=== PATIENT | female | born 1980 | race Native Hawaiian/Other Pacific Islander ===

== ENCOUNTER 2018-04-21 09:35 | Emergency (ER) | payer BC ==
[2018-04-21 09:52] VITALS: RESP 16; BMI 28.5
[2018-04-21 10:33] LABS: HEMOGLOBIN 11.4 g/dL (11.0-16.0); MEAN CORPUSCULAR HEMOGLOBIN 28.4 pg (27.0-31.0); MEAN CORPUSCULAR HGB CONC 33.8 g/dL (33.0-37.0); MEAN PLATELET VOLUME 7.5 fL (7.2-11.7); RED CELL DISTRIBUTION WIDTH 15.8 % (11.5-14.5); WHITE BLOOD COUNT 6.7 K/uL (4.8-10.8)
[2018-04-21 10:45] LABS: ALB/GLOB RATIO 1.2 (1.0-2.1); ALBUMIN 4.3 g/dL (3.5-5.0); ALT/SGPT 17 U/L (9-52); AST/SGOT 28 U/L (14-36); BLOOD UREA NITROGEN 12 mg/dL (7-17); CALCIUM 9.3 mg/dl (8.6-10.4); GFR NON-AFRICAN AMERICAN > 60
[2018-04-21 12:53] LABS: SQUAMOUS EPITHIAL 105 /hpf (0-5); URINE BACTERIA FEW (<OCC); URINE BILIRUBIN NEGATIVE (NEGATIVE); URINE BLOOD 2+ (NEGATIVE); URINE CLARITY Hazy (Clear); URINE COLOR Yellow (YELLOW); URINE GLUCOSE (UA) NORMAL (Normal); URINE LEUKOCYTE ESTERASE 3+ Leu/uL (Negative); URINE PROTEIN 1+ mg/dL (NEGATIVE); URINE UROBILINOGEN NORMAL mg/dL (0.2-1.0)
--- NOTE | 2018-04-21 12:59 | US ---
Date of service: 04/21/18 1st trimester/Ob TV Indication: Pelvic pain, bleeding, Comparison: Transvaginal pelvic ultrasound performed 12/29/17 Technique: Real-time transabdominal pelvic ultrasound was performed. In addition a transvaginal pelvic ultrasound was necessary to better depict pelvic anatomy. Findings: Uterus measures approximately 7.6 x 5.6 x 6.4 cm. Anteverted. Cervix length measures approximately 3.1 cm. Heterogeneous uterine mass (mid posterior uterus) measures approximately 3.5 x 2.4 x 3.3 cm, likely fibroid. There is a single intrauterine fetus present. 2 mm yolk sac. The gestational sac measures 1.6 and is compatible with a gestational age of 5 weeks 6 days. The crown-rump length measures 0.9 cm and is compatible with a gestational age of 6 weeks 0 days. There is heart motion which measured 139 BPM. The right ovary measures 4.9 x 3.3 x 3.7 cm. Numerous follicles. 2.6 x 2.1 x 2.7 cm echogenic mass, possibly dermoid. The left ovary measures 4.3 x 2.6 x 3.3 cm. 2.5 x 1.4 x 2.0 cm septated cyst. Blood flow was demonstrated to both ovaries. Impression: Live single intrauterine with estimated gestational age 5 weeks 6 days by gestational sac calculation and 6 weeks 0 days by crown-rump length calculation. heart rate 139 bpm. Heterogeneous uterine mass (mid posterior uterus) measures approximately 3.5 x 2.4 x 3.3 cm, likely fibroid. 2.6 x 2.1 x 2.7 cm echogenic right ovarian mass, possibly dermoid. Advise an anomaly screen at 16-18 weeks gestational age
--- NOTE | 2018-04-21 13:02 | C.PDOC ---
History Of Present Illness 37y/o female, who is currently around 10 weeks , presents to the ED for evaluation of vaginal spotting. Patient states her LMP was 03/05. She denies abdominal pain, pelvic pain, dysuria, nausea, vomiting. Time Seen by Provider: 04/21/18 10:09 Chief Complaint (Nursing): Female Genitourinary History Per: Patient History/Exam Limitations: no limitations Onset/Duration Of Symptoms: Days Current Symptoms Are (Timing): Still Present Associated Symptoms: denies: Nausea, Vomiting Additional History Per: Patient Abnormal Vaginal Bleeding: Yes Last Menstral Period: 03/05/18 Past Medical History Reviewed: Historical Data, Nursing Documentation, Vital Signs Vital Signs: Last Vital Signs Temp 98.8 F 04/21/18 13:18 Pulse 66 04/21/18 13:18 Resp 16 04/21/18 13:18 BP 100/66 04/21/18 13:18 Pulse Ox 99 04/21/18 17:51 - Medical History PMH: No Chronic Diseases Surgical History: No Surg Hx Family History: States: Unknown Family Hx - Social History Hx Tobacco Use: No Hx Alcohol Use: Yes Hx Substance Use: No - Immunization History Hx Tetanus Toxoid Vaccination: Yes Hx Influenza Vaccination: Yes Hx Pneumococcal Vaccination: Yes Review Of Systems Gastrointestinal: Negative for: Nausea, Vomiting, Abdominal Pain Genitourinary: Positive for: Vaginal Bleeding. Negative for: Pelvic Pain Physical Exam - Physical Exam Appears: Non-toxic, No Acute Distress Skin: Normal Color, Warm, Dry Head: Atraumatic, Normacephalic Eye(s): bilateral: Normal Inspection Oral Mucosa: Moist Neck: Supple Chest: Symmetrical, No Deformity, No Tenderness Cardiovascular: Rhythm Regular, No Murmur Respiratory: Normal Breath Sounds, No Rales, No Rhonchi, No Wheezing Gastrointestinal/Abdominal: Soft, No Tenderness, No Guarding, No Rebound Extremity: Normal ROM, Capillary Refill (less than 2 seconds ) Neurological/Psych: Oriented x3, Normal Speech, Normal Cognition ED Course And Treatment - Laboratory Results Result Diagrams: 04/21/18 10:21 04/21/18 10:21 O2 Sat by Pulse Oximetry: 99 (on RA) Pulse Ox Interpretation: Normal - CT Scan/US ultrasound Other Rad Studies (CT/US): Read By Radiologist, Radiology Report Reviewed CT/US Interpretation: Date of service: 04/21/18. 1st trimester/Ob TV. Indication: Pelvic pain, bleeding, . Comparison: Transvaginal pelvic ultrasound performed 12/29/17. Technique: Real-time transabdominal pelvic ultrasound was performed. In addition a transvaginal pelvic ultrasound was necessary to better depict pelvic anatomy. Findings: Uterus measures approximately 7.6 x 5.6 x 6.4 cm. Anteverted. Cervix length measures approximately 3.1 cm. Heterogeneous uterine mass (mid posterior uterus) measures approximately 3.5 x 2.4 x 3.3 cm, likely fibroid. There is a single intrauterine fetus present. 2 mm yolk sac. The gestational sac measures 1.6 and is compatible with a gestational age of 5 weeks 6 days. The crown-rump length measures 0.9 cm and is compatible with a gestational age of 6 weeks 0 days. There is heart motion which measured 139 BPM. The right ovary measures 4.9 x 3.3 x 3.7 cm. Numerous follicles. 2.6 x 2.1 x 2.7 cm echogenic mass, possibly dermoid. The left ovary measures 4.3 x 2.6 x 3.3 cm. 2.5 x 1.4 x 2.0 cm septated cyst. Blood flow was demonstrated to both ovaries. Impression: Live single intrauterine with estimated gestational age 5 weeks 6 days by gestational sac calculation and 6 weeks 0 days by crown-rump length calculation. heart rate 139 bpm. Heterogeneous uterine mass (mid posterior uterus) measures approximately 3.5 x 2.4 x 3.3 cm, likely fibroid. 2.6 x 2.1 x 2.7 cm echogenic right ovarian mass, possibly dermoid. Advise an anomaly screen at 16-18 weeks gestational age Progress Note: Bloodwork, urinalysis, OB Transvaginal US ordered and reviewed. Labs indicative of urinary tract infection. Macrobid PO given. On reassessment , patient is resting comfortably, showing no signs of distress and is stable for discharge. Patient is advised to follow up with her PMD within 1-2 days for further evaluation and/or return to the ED if symptoms persist or worsen. Disposition Counseled Patient/Family Regarding: Studies Performed, Diagnosis, Need For Followup, Rx Given - Disposition Referrals: [facility] [Outside] Disposition: HOME/ ROUTINE Disposition Time: 13:00 Condition: STABLE Additional Instructions: FOLLOW UP WITH YOUR CONSUMER SAFETY OFFICER WITHIN 1 WEEK USE MEDICATIONS DIRECTED RETURN TO ER IF SYMPTOMS WORSEN Prescriptions: Nitrofurantoin Macrocrystals [Macrobid] 1 cap PO BID #14 cap Instructions: Bleeding With (DC) Forms: Work/School/Gym Excuse, [facility] (Thai) Print Language: SAMMARINESE - Clinical Impression Clinical Impression: UTI (lower urinary tract infection), Vaginal bleeding during - Scribe Statement The provider has reviewed the documentation as recorded by the Scribe (Hellen Quiroz) Provider Attestation: All medical record entries made by the Scribe were at my direction and personally dictated by me. I have reviewed the chart and agree that the record accurately reflects my personal performance of the history, physical exam, medical decision making, and the department course for this patient. I have also personally directed, reviewed, and agree with the discharge instructions and disposition.
[2018-04-21 13:19] VITALS: BP 100/66; PULSE 66; TEMP 98.8
[2018-04-21 17:52] VITALS: O2SAT 99
== END 2018-04-21 13:39 | disposition home or self-care (01) ==
LOC: C.ER 09:35
DX: O23.41 Unspecified infection of urinary tract in pregnancy, first trimester (principal); O20.9 Hemorrhage in early pregnancy, unspecified; Z3A.01 Less than 8 weeks gestation of pregnancy